=== PATIENT | female | born 1980 | race Caucasian/White ===

== ENCOUNTER 2016-11-10 10:12 | Emergency (ER) | payer MEDICARE, MEDICAID ==
[~2016-11-10 10:12] MED LIST: ATIVAN1 MG; ATIVAN1 MG PO; COMPAZINE10 M PO; COUMADIN2 MG PO; EFFEXOR XR150 MG; ELAVIL75 MG; LEVOTHYROXINE200 MCG PO; LEVOXYL100 MCG PO; LOMOTIL1 TAB PO; NEXIUM40 MG PO; NORCO 5/325 TAB1 TAB PO; OXYCONTIN80 MG; OXYFAST; PERCOCET 5/3251 TAB PO; SUTENT50 MG PO; SYNTHROID150 MCG PO; TRAZODONE100 MG PO; ZOFRAN8 MG; ZOFRAN8 MG PO
[2016-11-10] MEDS ORDERED: GLUCOPHAGE XR500 M1 PO ×2 (10:27)
[2016-11-10] MEDS ORDERED: RANITIDINE HCL300 M1 PO (10:42)
[2016-11-10] MEDS ORDERED: SYNTHROID100 MC1 PO (10:43)
[2016-11-10] MEDS ORDERED: MINIVELLE1 EAC2 TD (10:43)
[2016-11-10] MEDS ORDERED: CYMBALTA60 M1 PO (10:44)
[2016-11-10] MEDS ORDERED: ATORVASTATIN CA20 M1 PO (10:44)
[2016-11-10] MEDS ORDERED: MINIPRESS2 M1 PO (10:44)
[2016-11-10] MEDS ORDERED: NAPROSYN500 M1 PO (10:45)
[2016-11-10] MEDS ORDERED: VYVANSE50 M1 PO (10:45)
[2016-11-10] MEDS ORDERED: TRAZODONE HCL100 M1 PO (10:46)
[2016-11-10] MEDS ORDERED: LOMOTIL 2.5-0.1 EACH PO (10:46)
[2016-11-10] MEDS ORDERED: ALPRAZOLAM ER2 M1 PO (10:47)
[2016-11-10] MEDS ORDERED: ONE DAILY1 EAC4 PO (10:47)
[2016-11-10] MEDS ORDERED: CLARITIN10 M6 PO (10:47)
[2016-11-10] MEDS ORDERED: TYLENOL EXTRA500 M1 PO (10:48)
[2016-11-10] MEDS ORDERED: TUMS200 MG PO (10:48)
[2016-11-10] MEDS ORDERED: CALCIUM + VITA1 EAC4 PO (10:48)
[2016-11-10] MEDS ORDERED: BIOTIN PO (10:49)
[2016-11-10] MEDS ORDERED: NASACORT10.8 M1 (10:49)
[2016-11-10] MEDS ORDERED: SYSTANE ULTRA 010 M1 OP (10:50)
[2016-11-10 11:28] LABS: BASO % 0.3 % (0-2); EOSINOPHIL ABSOLUTE COUNT 0.1 tho/cmm (0.0-0.7); HCT-HEMATOCRIT 41.4 % (34.0-49.0); LYMPH % 15.6 % (20-45); LYMPH ABSOLUTE COUNT 1.1 tho/cmm (0.8-4.5); MCH (MEAN CORPUSCULAR HGB) 29.9 pg (28.0-32.0); MCHC MEAN CORPUSCULAR HGB CONC 33.8 % (32.0-36.0); MCV (MEAN CELL VOLUME) 88.5 fl (82.0-96.0); MEAN PLATELET VOLUME 9.9 cmc (9.4-12.4); MONO % 13.7 % (0-12); MONOCYTE ABSOLUTE COUNT 0.9 tho/cmm (0.0-1.2); NEUTROPHIL ABSOLUTE COUNT 4.7 tho/cmm (1.6-8.0); NEUTROPHIL-AUTOMATED 4.7 tho/cmm (1.6-8.0); NEUTROPHILS % 68.4 % (40-80); PLATELET COUNT 250 tho/cmm (150-450); RED BLOOD COUNT 4.68 mil/cmm (4.00-5.20); WHITE BLOOD COUNT 6.9 tho/cmm (4.0-10.0)
[2016-11-10 11:38] LABS: ANION GAP 15 mmol/L (0-20); BLOOD UREA NITROGEN 28 mg/dl (6-24); CALCIUM 8.4 mg/dl (8.5-10.5); CARBON DIOXIDE-VENOUS 26 mmol/L (22-32); CHLORIDE 103 mmol/l (96-110); CREATININE 1.18 mg/dl (0.50-1.10); GLUCOSE 128 mg/dL (70-110); POTASSIUM 3.6 mmol/L (3.7-5.1); SODIUM 140 mmol/L (135-145); eGFR VALUE FOR BLACK 69 mL/Min
[2016-11-10] MEDS ORDERED: ALLEGRA ALLERG180 M1 PO (12:02)
== END 2016-11-10 13:11 ==
LOC: EDMED 10:12
PROVIDERS: Family Medicine
DX: E86.0 Dehydration (principal); R19.7 Diarrhea, unspecified; E11.9 Type 2 diabetes mellitus without complications; E03.9 Hypothyroidism, unspecified; Z88.0 Allergy status to penicillin; Z90.710 Acquired absence of both cervix and uterus
CPT/HCPCS: J2405; J7030